=== PATIENT | female | born 1980 | race Caucasian/White ===

== ENCOUNTER → 2017-05-30 | Outpatient (CLI) | payer BC ==
--- NOTE | 2017-05-30 13:52 | RADIOLOGY IMAGING REPORT ---
FACILITY: [facility] - [place] PATIENT NAME: Maribel Johnston : 1980 MR: [id number] V: [id number] EXAM DATE: ORDERING PHYSICIAN: EMILE FERNANDES TECHNOLOGIST: Location: [facility] - [place] Patient: Maribel Johnston : 1980 Visit/Account:[id number] Date of Sevice: 05/30/2017 Exam type: HAND COMPLETE RIGHT History: Gallbladder four days ago, pain on fifth digit Comparison: None. Findings: There is no evidence of acute fracture or dislocation involving the right hand. No radiopaque soft t issue foreign body is seen. IMPRESSION: 1. No acute osteoarticular abnormality the right hand is seen. If patient's symptoms persist follow -up imaging recommended to exclude an occult fracture Report Dictated By: Flory Morrissey MD at 05/30/2017 1:42 PM Report E-Signed By: Flory Morrissey MD at 05/30/2017 1:48 PM [id number]
== END ==
LOC: RAD 11:27
PROVIDERS: ATTEND Nurse Practitioner Family
DX: M79.641 Pain in right hand (principal)

== ENCOUNTER 2017-06-06 | Emergency (ER) | payer BC ==
[~2017-06-06] VITALS: Ht 162.6 cm; Wt 54.4 kg
--- NOTE | 2017-06-06 00:03 | ER Report ---
History and Physical Time Seen By MD: 00:03 HPI/ROS CHIEF COMPLAINT: Right flank pain HISTORY OF PRESENT ILLNESS: 36-year-old female presents ambulatory to the ER complaining of severe right flank pain. She is diaphoretic and clammy. She notes sudden onset of pain. She notes some dark colored urine yesterday. She notes severe nausea but no vomiting. Patient notes radiation of the pain to her right lower quadrant. Patient admits to some urgency REVIEW OF SYSTEMS: Respiratory: No cough, no dyspnea. Cardiovascular: No chest pain, no palpitations. Gastrointestinal: As above Musculoskeletal: As above Allergies: Coded Allergies: No Known Drug Allergies (Unverified , 06/06/17) Home Meds Active Scripts Oxycodone Hcl/Acetaminophen (PERCOCET 5-325 MG TABLET) 1 Each Tablet, 1 EACH PO Q4-6H Y for PAIN, #12 Prov:FABRUDY Alcala DO 06/06/17 Promethazine Hcl (PROMETHAZINE HCL) 25 Mg Tablet, 25 MG PO Q4H Y for NAUSEA/ VOMITING, #12 TAB Prov:FABRUDY Alcala DO 06/06/17 Reported Medications Bupropion Hcl (WELLBUTRIN XL) 300 Mg Tab.er.24h, 300 MG PO QDAY, TAB 06/06/17 Reviewed Nurses Notes: Yes Old Medical Records Reviewed: Yes Constitutional Vital Sign - Last 24 Hours 06/06/17 06/06/17 06/06/17 06/06/17 00:04 00:30 00:45 01:00 Temp 98.5 Pulse 92 ? 80 Resp 16 B/P (MAP) 127/82 Pulse Ox 91 90 06/06/17 06/06/17 06/06/17 06/06/17 01:15 01:30 01:45 02:00 Pulse ? 80 73 Pulse Ox 95 89 06/06/17 06/06/17 02:15 03:05 Pulse 79 85 Resp 16 B/P (MAP) 98/72 (81) Pulse Ox 94 95 O2 Delivery Room Air Physical Exam General Appearance: The patient is alert, has no immediate need for airway protection and no current signs of toxicity. Vital signs stable, afebrile, pulse ox normal, slightly pale appearing, skin: Dry HEENT: Pupils equal and round no injection. Oropharynx without redness or exudate, mucous membranes are moist Respiratory: Chest is non tender, lungs are clear to auscultation. Cardiac: regular rate and rhythm Gastrointestinal: Abdomen is soft and non tender, no masses, bowel sounds normal., Positive right CVA tenderness Musculoskeletal: Neck: Neck is supple and non tender. Extremities have full range of motion and are non tender. Skin: No rashes or lesions. DIFFERENTIAL DIAGNOSIS: After history and physical exam differential diagnosis was considered for flank pain including but not limited to musculoskeletal causes, kidney stone, pyelonephritis, shingles, and intra-abdominal causes such as diverticulitis and appendicitis. Medical Decision Making Data Points Result Diagram: 06/06/17 0046 06/06/17 0046 Laboratory Hematology Test 06/06/17 00:46 06/06/17 01:07 Red Blood Count 4.71 M/uL (4.17-5.56) Mean Corpuscular Volume 90.9 fL (80.0-96.0) Mean Corpuscular Hemoglobin 31.8 pg (26.0-33.0) Mean Corpuscular Hemoglobin Concent 34.9 g/dL (32.0-36.0) Red Cell Distribution Width 11.7 % (11.5-14.5) Mean Platelet Volume 8.6 fL (7.2-11.1) Neutrophils (%) (Auto) 54.4 % (39.4-72.5) Lymphocytes (%) (Auto) 35.9 % (17.6-49.6) Monocytes (%) (Auto) 7.7 % (4.1-12.4) Eosinophils (%) (Auto) 1.3 % (0.4-6.7) Basophils (%) (Auto) 0.7 % (0.3-1.4) Nucleated RBC Relative Count (auto) 0.0 /100WBC Neutrophils # (Auto) 4.9 K/uL (2.0-7.4) Lymphocytes # (Auto) 3.2 K/uL (1.3-3.6) Monocytes # (Auto) 0.7 K/uL (0.3-1.0) Eosinophils # (Auto) 0.1 K/uL (0.0-0.5) Basophils # (Auto) 0.1 K/uL (0.0-0.1) Nucleated RBC Absolute Count (auto) 0.00 K/uL Sodium Level 139 mmol/L (137-145) Potassium Level 3.7 mmol/L (3.5-5.0) Chloride Level 105 mmol/L (98-107) Carbon Dioxide Level 21 mmol/L (22-31) Blood Urea Nitrogen 14 mg/dl (7-18) Creatinine 0.80 mg/dl (0.52-1.04) Glomerular Filtration Rate Calc > 60.0 Random Glucose 89 mg/dl (75-110) Calcium Level 9.3 mg/dl (8.4-10.2) Total Bilirubin 0.4 mg/dl (0.2-1.3) Aspartate Amino Transf (AST/SGOT) 19 U/L (0-35) Alanine Aminotransferase (ALT/SGPT) 28 U/L (0-56) Alkaline Phosphatase 64 U/L (0-126) Total Protein 7.7 gm/dl (6.3-8.2) Albumin 4.3 g/dl (3.5-5.0) Amylase Level 68 U/L (0-110) Lipase 101 U/L (23-300) Human Chorionic Gonadotropin, Qual Negative (NEGATIVE) Urine Color Straw Urine Clarity Clear Urine pH 5.0 pH (4.8-9.5) Urine Specific [place] 1.013 Urine Protein Negative mg/dL (NEGATIVE) Urine Glucose (UA) Negative mg/dL (NEGATIVE) Urine Ketones Trace mg/dL (NEGATIVE) Urine Blood Small (NEGATIVE) Urine Nitrite Negative (NEGATIVE) Urine Bilirubin Negative (NEGATIVE) Urine Urobilinogen Negative mg/dL (0.2-1.9) Urine Leukocyte Esterase Negative (NEGATIVE) Urine RBC 1 /HPF (0-2/HPF) Urine WBC None /HPF (0-5/HPF) Urine Squamous Epithelial Cells Few /LPF (</=FEW) Urine Bacteria Negative /HPF (NONE-FEW) Urine Mucus None /HPF (NONE-FEW) Chemistry Test 06/06/17 00:46 06/06/17 01:07 White Blood Count 9.0 k/uL (4.5-11.0) Red Blood Count 4.71 M/uL (4.17-5.56) Hemoglobin 15.0 g/dL (12.0-16.0) Hematocrit 42.8 % (34.0-47.0) Mean Corpuscular Volume 90.9 fL (80.0-96.0) Mean Corpuscular Hemoglobin 31.8 pg (26.0-33.0) Mean Corpuscular Hemoglobin Concent 34.9 g/dL (32.0-36.0) Red Cell Distribution Width 11.7 % (11.5-14.5) Platelet Count 228 K/uL (150-450) Mean Platelet Volume 8.6 fL (7.2-11.1) Neutrophils (%) (Auto) 54.4 % (39.4-72.5) Lymphocytes (%) (Auto) 35.9 % (17.6-49.6) Monocytes (%) (Auto) 7.7 % (4.1-12.4) Eosinophils (%) (Auto) 1.3 % (0.4-6.7) Basophils (%) (Auto) 0.7 % (0.3-1.4) Nucleated RBC Relative Count (auto) 0.0 /100WBC Neutrophils # (Auto) 4.9 K/uL (2.0-7.4) Lymphocytes # (Auto) 3.2 K/uL (1.3-3.6) Monocytes # (Auto) 0.7 K/uL (0.3-1.0) Eosinophils # (Auto) 0.1 K/uL (0.0-0.5) Basophils # (Auto) 0.1 K/uL (0.0-0.1) Nucleated RBC Absolute Count (auto) 0.00 K/uL Glomerular Filtration Rate Calc > 60.0 Calcium Level 9.3 mg/dl (8.4-10.2) Total Bilirubin 0.4 mg/dl (0.2-1.3) Aspartate Amino Transf (AST/SGOT) 19 U/L (0-35) Alanine Aminotransferase (ALT/SGPT) 28 U/L (0-56) Alkaline Phosphatase 64 U/L (0-126) Total Protein 7.7 gm/dl (6.3-8.2) Albumin 4.3 g/dl (3.5-5.0) Amylase Level 68 U/L (0-110) Lipase 101 U/L (23-300) Human Chorionic Gonadotropin, Qual Negative (NEGATIVE) Urine Color Straw Urine Clarity Clear Urine pH 5.0 pH (4.8-9.5) Urine Specific [place] 1.013 Urine Protein Negative mg/dL (NEGATIVE) Urine Glucose (UA) Negative mg/dL (NEGATIVE) Urine Ketones Trace mg/dL (NEGATIVE) Urine Blood Small (NEGATIVE) Urine Nitrite Negative (NEGATIVE) Urine Bilirubin Negative (NEGATIVE) Urine Urobilinogen Negative mg/dL (0.2-1.9) Urine Leukocyte Esterase Negative (NEGATIVE) Urine RBC 1 /HPF (0-2/HPF) Urine WBC None /HPF (0-5/HPF) Urine Squamous Epithelial Cells Few /LPF (</=FEW) Urine Bacteria Negative /HPF (NONE-FEW) Urine Mucus None /HPF (NONE-FEW) Urinalysis Test 06/06/17 01:07 Urine Color Straw Urine Clarity Clear Urine pH 5.0 pH (4.8-9.5) Urine Specific [place] 1.013 Urine Protein Negative mg/dL (NEGATIVE) Urine Glucose (UA) Negative mg/dL (NEGATIVE) Urine Ketones Trace mg/dL (NEGATIVE) Urine Blood Small (NEGATIVE) Urine Nitrite Negative (NEGATIVE) Urine Bilirubin Negative (NEGATIVE) Urine Urobilinogen Negative mg/dL (0.2-1.9) Urine Leukocyte Esterase Negative (NEGATIVE) Urine RBC 1 /HPF (0-2/HPF) Urine WBC None /HPF (0-5/HPF) Urine Squamous Epithelial Cells Few /LPF (</=FEW) Urine Bacteria Negative /HPF (NONE-FEW) Urine Mucus None /HPF (NONE-FEW) EKG/Imaging Imaging Results: CT scan of the abdomen and pelvis with IV contrast was obtained. The results of the study are EXAMINATION: CT Abdomen and Pelvis Without Contrast 06/06/2017 1:30 AM HISTORY: R flank pain TECHNIQUE: Renal stone protocol - Spiral scan was obtained through the kidneys , ureters and bladder without intravenous contrast. One of the following dose optimization techniques was utilized in the performance of this exam: Automated exposure control; adjustment of the mA and/ or kV according to the patient's size; or use of an iterative reconstruction technique. Specific details can be referenced in the facility's radiology CT exam operational policy. COMPARISON STUDIES: none. FINDINGS: Right kidney and ureter: Negative. No stone or obstruction. No perinephric stranding. Left kidney and ureter: Negative. No stone or obstruction. No perinephric stranding. Bladder: Negative. No stone. Liver / biliary: Prior cholecystectomy. Postinflammatory or dystrophic appearing calcifications laterally in the right lobe. Small hypodensity in the inferior tip of the right lobe presumptively is an incidental cyst. Pancreas: negative Spleen: 2.2 cm cyst with peripheral calcifications. Small incidental anteroinferior accessory splenule. Adrenal glands: negative Retroperitoneum: negative Pelvic structures: Prior hysterectomy. Bowel / peritoneum / mesenteries: Negative. Normal appendix. Vessels: negative Musculoskeletal / Body wall: Bilateral incidental chronic pars defects at L5. Probable old healed injury of the base of the left transverse spinous process of L2. Lymph node assessment: negative Lower chest: negative IMPRESSION: 1. Negative CT evaluation for kidney stone or obstruction. 2. No acute etiology for right-sided pain demonstrated. Appendix is normal. The study was read by the radiologist. I viewed the images myself on the PACS system. ED Course/Re-evaluation Clinical Indication for ER IV: Hydration, IV Access ED Course Patient was admitted to an examination room. H&P was done. The differential diagnoses was considered. On clinical examination. Patient has right CVA tenderness. She is very uncomfortable able to get on the examination bed. She has severe nausea. Her clinical presentation is consistent with renal colic. Patient's treated with IV fluids, antibiotics, Toradol, Dilaudid. Diagnostic evaluation WBC shows a normal white count. The remainder of the diagnostic laboratory studies are unremarkable. Urinalysis shows no hematuria. Due to his severe to the patient's symptoms. A CT scan without contrast is ordered. She apparently has an allergy to IV contrast. A CT scan was unremarkable for evidence of a stone or hydronephrosis. There is significant fecal stasis throughout the right colon. I suspect patient's suffering. Intestinal colic. She'll be discharged home in a conservative treatment plan. Patient's advised clear liquid diet, MiraLAX and magnesium citrate to empty her bowels. Decision to Disposition Date: Jun 06, 2017 Decision to Disposition Time: 02:51 Depart Departure Latest Vital Signs Vital Signs Date Time Temp Pulse Resp B/P (MAP) Pulse Ox O2 Delivery O2 Flow Rate FiO2 06/06/17 03:05 85 16 98/72 (81) 95 Room Air 06/06/17 00:04 98.5 Impression: Primary Impression: Right flank pain Additional Impressions: Colicky abdominal pain Nausea Condition: Improved Disposition: HOME OR SELF-CARE Referrals: EMILE FERNANDES APRN (PCP) New Scripts Oxycodone Hcl/Acetaminophen (PERCOCET 5-325 MG TABLET) 1 Each Tablet 1 EACH PO Q4-6H Y for PAIN, #12 Prov: RUDY SANON DO 06/06/17 Promethazine Hcl (PROMETHAZINE HCL) 25 Mg Tablet 25 MG PO Q4H Y for NAUSEA/VOMITING, #12 TAB Prov: RUDY SANON DO 06/06/17 Patient Instructions: Abdominal Pain (ED), Clear Liquid Diet (ED), Constipation (ED) Additional Instructions: Follow clear liquid diet for 24-48 hours and to your bowels evacuate Take MiraLAX 2-3 times per day Take one bottle of magnesium citrate laxative to stimulate bowel evacuation Take ibuprofen 200 mg 3 tablets 3 times a day for inflammatory pain relief Apply heating pad to your abdomen and back to alleviate the pain Follow-up with your primary care if unimproved in 3-5 days Return to the ER for any worsening Problem Qualifiers RUDY SANON DO Jun 06, 2017 00:03
[2017-06-06] MEDS ORDERED: BUPR-474 PO (00:09)
[2017-06-06] MEDS ORDERED: NS(*) 0.9% 1000 ML BAG 1,000 ML IV ONE (00:12)
[2017-06-06] MEDS ORDERED: ONDANSETRON 4 MG/2 ML VIAL IVP ONE (00:15)
[2017-06-06] MEDS ORDERED: KETOROLAC 30 MG/ML VIAL IVP ONE (00:15)
[2017-06-06] MEDS ORDERED: PROMETHAZINE 25 MG/ML 1 ML AMP IVP ONE (00:15)
[2017-06-06] MEDS ORDERED: HYDROmorphone(ER ONLY) 1 MG/ML IVP ONE ×2 (00:15→02:15)
[2017-06-06 00:58] LABS: PLATELET COUNT, AUTOMATED 228 K/uL (150-450)
--- NOTE | 2017-06-06 02:05 | RADIOLOGY IMAGING REPORT ---
FACILITY: [facility] - [place] PATIENT NAME: Maribel Johnston : 1980 MR: [id number] V: [id number] EXAM DATE: ORDERING PHYSICIAN: RUDY SANON TECHNOLOGIST: Location: [facility] - [place] Patient: Maribel Johnston : 1980 Visit/Account:[id number] Date of Sevice: 06/06/2017 EXAMINATION: CT Abdomen and Pelvis Without Contrast 06/06/2017 1:30 AM HISTORY: R flank pain TECHNIQUE: Renal stone protocol - Spiral scan was obtained through the kidneys, ureters and bladder without intravenous contrast. One of the following dose optimization techniques was utilized in the performance of this exam: Autom ated exposure control; adjustment of the mA and/or kV according to the patient's size; or use of an i terative reconstruction technique. Specific details can be referenced in the facility's radiology C T exam operational policy. COMPARISON STUDIES: none. FINDINGS: Right kidney and ureter: Negative. No stone or obstruction. No perinephric stranding. Left kidney and ureter: Negative. No stone or obstruction. No perinephric stranding. Bladder: Negative. No stone. Liver / biliary: Prior cholecystectomy. Postinflammatory or dystrophic appearing calcifications later ally in the right lobe. Small hypodensity in the inferior tip of the right lobe presumptively is an i ncidental cyst. Pancreas: negative Spleen: 2.2 cm cyst with peripheral calcifications. Small incidental anteroinferior accessory splenul e. Adrenal glands: negative Retroperitoneum: negative Pelvic structures: Prior hysterectomy. Bowel / peritoneum / mesenteries: Negative. Normal appendix. Vessels: negative Musculoskeletal / Body wall: Bilateral incidental chronic pars defects at L5. Probable old healed inj ury of the base of the left transverse spinous process of L2. Lymph node assessment: negative Lower chest: negative IMPRESSION: 1. Negative CT evaluation for kidney stone or obstruction. 2. No acute etiology for right-sided pain demonstrated. Appendix is normal. Report Dictated By: Yaron Post MD at 06/06/2017 1:54 AM Report E-Signed By: Yaron Post MD at 06/06/2017 2:00 AM WSN:[id number]
[2017-06-06] MEDS ORDERED: PROM-110 PO (02:53)
[2017-06-06] MEDS ORDERED: OXYC-865 PO (02:53)
[2017-06-06] MEDS ORDERED: PROMETHAZINE HCL 25 MG TAB TH 2 TAB/BOTTLE PO ONE (02:55)
[2017-06-06] MEDS ORDERED: oxyCODONE/ACETAMIN 5/325MG TH 2 TAB/BOTTLE PO ONE (02:55)
[2017-06-06 03:05] VITALS: BP 98/72
== END 2017-06-06 03:20 | disposition home or self-care (01) ==
LOC: ER 00:06
DX: R10.84 Generalized abdominal pain (principal)
CPT/HCPCS: 74176; 81001; 82150; 83690; 84703; 85025; 96361; 96374; 96375; 96376; 99284; J1170; J1885; J2405; J2550; J7030; 82040; 82247; 82310; 82374; 82435; 82565; 82947; 84075; 84132; 84155; 84295; 84450; 84460; 84520

== ENCOUNTER 2017-06-12 13:57 | Emergency (ER) | payer BC ==
[~2017-06-12 13:57] MED LIST: BUPR-474 PO; OXYC-865 PO; PROM-110 PO
--- NOTE | 2017-06-12 14:10 | ER Report ---
History and Physical Time Seen By MD: 14:09 Hx. of Stated Complaint: Referred from urgent care. 10 days of bad hemorrhoids. Pt states pain is simmilar to kidney stone pain. HPI/ROS CHIEF COMPLAINT: Hemorrhoid pain HISTORY OF PRESENT ILLNESS: 37-year-old female patient presents to emergency room with complaint of hemorrhoid pain. Patient states this been going on for the past 10 days. Patient states the pain is fairly significant. She denies having any fevers or chills with this. Patient states that she has been taking Savi lax to help soften the stool. She states that she is not had any improvement with pain. She did see her primary care provider who started her on hydrocortisone suppositories. She states that has not had any improvement. She does have an appointment with Dr. Mariee on Tuesday. She states that he is to discuss the hemorrhoids. She states the pain became so bad today that she was unable to bear it until then. REVIEW OF SYSTEMS: Respiratory: No cough, no dyspnea. Cardiovascular: No chest pain, no palpitations. Gastrointestinal: No vomiting, no abdominal pain. Musculoskeletal: No back pain. Allergies: Coded Allergies: No Known Drug Allergies (Unverified , 06/06/17) Home Meds Reported Medications Bupropion Hcl (WELLBUTRIN XL) 300 Mg Tab.er.24h, 300 MG PO QDAY, TAB 06/06/17 Discontinued Scripts Oxycodone Hcl/Acetaminophen (PERCOCET 5-325 MG TABLET) 1 Each Tablet, 1 EACH PO Q4-6H Y for PAIN, #12 Prov:RUDY SANON DO 06/06/17 Promethazine Hcl (PROMETHAZINE HCL) 25 Mg Tablet, 25 MG PO Q4H Y for NAUSEA/ VOMITING, #12 TAB Prov:RUDY SANON DO 06/06/17 Past Medical/Surgical History Patient has a past medical history of anxiety. Patient has a surgical history of hysterectomy. Reviewed Nurses Notes: Yes Hx Substance Use Disorder: No Hx Alcohol Use: No Constitutional Vital Sign - Last 24 Hours 06/12/17 06/12/17 06/12/17 06/12/17 14:03 14:04 14:07 14:09 Temp 98.7 Pulse 101 78 Resp 18 B/P (MAP) 121/96 (104) 121/96 120/81 (94) Pulse Ox 95 95 O2 Delivery Room Air 06/12/17 06/12/17 06/12/17 06/12/17 14:12 14:17 14:20 14:22 Pulse 83 80 116 B/P (MAP) 129/100 (110) Pulse Ox 94 91 77 06/12/17 06/12/17 06/12/17 06/12/17 14:27 14:32 14:37 14:40 Pulse 87 78 72 B/P (MAP) 109/64 (79) Pulse Ox 96 93 95 06/12/17 06/12/17 06/12/17 06/12/17 14:42 14:47 14:52 14:57 Pulse 71 72 75 72 Pulse Ox 93 95 91 94 06/12/17 06/12/17 06/12/17 06/12/17 15:00 15:02 15:07 15:12 Pulse 68 66 72 B/P (MAP) 105/68 (80) Pulse Ox 93 94 93 06/12/17 06/12/17 06/12/17 06/12/17 15:17 15:20 15:22 15:27 Pulse 74 70 66 B/P (MAP) 104/73 (83) Pulse Ox 94 95 93 06/12/17 06/12/17 06/12/17 06/12/17 15:32 15:37 15:40 15:42 Pulse 65 73 67 B/P (MAP) 101/61 (74) Pulse Ox 94 95 95 06/12/17 06/12/17 15:47 15:52 Pulse 67 66 Pulse Ox 95 94 Physical Exam General Appearance: The patient is alert, has no immediate need for airway protection and no current signs of toxicity. Respiratory: Chest is non tender, lungs are clear to auscultation. Cardiac: regular rate and rhythm Gastrointestinal: Abdomen is soft and non tender, no masses, bowel sounds normal. Rectal: Patient has 2 large hemorrhoids one at 9:00 and one at 3:00 in the rectum. The hemorrhoid at 9:00 is larger, and is most tender. Musculoskeletal: Neck: Neck is supple and non tender. Extremities have full range of motion and are non tender. Skin: No rashes or lesions. DIFFERENTIAL DIAGNOSIS: After history and physical exam differential diagnosis was considered for hemorrhoid pain, thrombosed hemorrhoid. Medical Decision Making ED Course/Re-evaluation ED Course Patient was admitted to an exam room, history and physical were obtained. Differential diagnoses were considered. On examination patient has 2 large hemorrhoids, the largest is at 9:00 in the rectum and very tender to touch, the second is at 3:00 and also very tender. With the patient permission, the area was anesthetized, cleaned with alcohol. Patient stated that she had significant nausea after she was anesthetized. Patient was given a dose of Zofran. After 20 minutes I did go in and reevaluated the patient. She states she's feeling significantly better. The hemorrhoids at that time were adequately anesthetized , and incisions were made. I was able to get out clots from both hemorrhoids. I believe this likely the underlying cause of her pain. We will go ahead and discharge her home at this time. I would like her to keep 4 x 4's back between her buttocks for today. Tomorrow she may remove them. She is to limit her activity by pain. She may return to emergency room if condition worsens. I would like her to keep her appointment with Dr. Mariee. We will hold off putting her on any laxatives time, as I do not believe that she will likely need them. She is to follow-up if there is any worsening of her condition. Patient verbalized understanding and agreement. Decision to Disposition Date: Jun 12, 2017 Decision to Disposition Time: 15:28 Depart Departure Latest Vital Signs Vital Signs Date Time Temp Pulse Resp B/P (MAP) Pulse Ox O2 Delivery O2 Flow Rate FiO2 06/12/17 15:52 66 94 06/12/17 15:40 101/61 (74) 06/12/17 14:04 98.7 18 Room Air Impression: Primary Impression: Thrombosed hemorrhoids Condition: Improved Disposition: HOME OR SELF-CARE Referrals: EMILE FERNANDES APRN (PCP) Patient Instructions: Thrombosed Hemorrhoid (ED) Additional Instructions: Limit activity by pain. You may work tomorrow if you are feeling up to it. Return to the ER if condition worsens. Follow up with Dr. Mariee on Tuesday as previously scheduled. Take Tylenol or Ibuprofen as needed for pain. You may change the 4x4 whenever you go to the bathroom. Wipe first with a Tucks pad. Continue using the Hydrocortisone suppositories. SETH TEAGUE Jun 12, 2017 14:09
[2017-06-12] MEDS ORDERED: ONDANSETRON 4 MG ODT TABDP SL ONE (14:45)
[2017-06-12 15:40] VITALS: BP 101/61
[2017-06-13] MEDS ORDERED: ALPR-1 PO (13:52)
[2017-06-13] MEDS ORDERED: ESCI10TA8 PO (13:52)
== END 2017-06-12 15:58 | disposition home or self-care (01) ==
LOC: ER 14:02
DX: K64.5 Perianal venous thrombosis (principal)
CPT/HCPCS: 99284; S0119

== ENCOUNTER 2017-06-13 13:41 | Inpatient (IN) | payer BC ==
[~2017-06-13] VITALS: Ht 162.6 cm; Wt 54.6 kg
[2017-06-13] MEDS ORDERED: ALPR-1 PO (13:52)
[2017-06-13] MEDS ORDERED: ESCI10TA8 PO (13:52)
--- NOTE | 2017-06-13 13:57 | ER Report ---
History and Physical Time Seen By MD: 13:56 Hx. of Stated Complaint: CONTINUED BLEEDING FROM HEMAROIDS. INCREASED PAIN. HPI/ROS CHIEF COMPLAINT: Hemorrhoids HISTORY OF PRESENT ILLNESS: This is a 37-year-old female who presents to the emergency department for complaints of hemorrhoids. Patient states that she was here yesterday for her hemorrhoids and they did an excision of the thrombosed hemorrhoid. Patient states that she's been having the hemorrhoid discomfort for about 10 days and has been getting worse she's talked to her doctor she been on stool softeners, fiber, topical ointments for the groins as well as suppositories. Patient states that since yesterday the pain has actually increased and she is very frustrated, tearful and anxious. Patient states that "something needs to be done". Patient denies chest pain, shortness of breath, nausea, vomiting. REVIEW OF SYSTEMS: Respiratory: No cough, no dyspnea. Cardiovascular: No chest pain, no palpitations. Gastrointestinal: No vomiting, no abdominal pain. Musculoskeletal: No back pain. Integumentary: As above. Allergies: Coded Allergies: No Known Drug Allergies (Unverified , 06/13/17) Home Meds Reported Medications Alprazolam 0.25 Mg Tab (XANAX 0.25 MG TAB) 0.25 Mg Tablet, 1 TAB PO TID, TAB 06/13/17 Escitalopram Oxalate (ESCITALOPRAM OXALATE) 10 Mg Tablet, 10 MG PO QDAY, TAB 06/13/17 Bupropion Hcl (WELLBUTRIN XL) 300 Mg Tab.er.24h, 300 MG PO QDAY, TAB 06/06/17 Discontinued Scripts Oxycodone Hcl/Acetaminophen (PERCOCET 5-325 MG TABLET) 1 Each Tablet, 1 EACH PO Q4-6H Y for PAIN, #12 Prov:RUDY SANON DO 06/06/17 Promethazine Hcl (PROMETHAZINE HCL) 25 Mg Tablet, 25 MG PO Q4H Y for NAUSEA/ VOMITING, #12 TAB Prov:RUDY SANON DO 06/06/17 Past Medical/Surgical History Patient has a past medical surgical history of anxiety, hysterectomy. Reviewed Nurses Notes: Yes Hx Substance Use Disorder: No Hx Alcohol Use: No Constitutional Vital Sign - Last 24 Hours 06/13/17 13:50 Temp 98.0 Pulse 85 Resp 18 B/P (MAP) 113/60 Pulse Ox 95 O2 Delivery Room Air Physical Exam General Appearance: The patient is alert, has no immediate need for airway protection and no current signs of toxicity. Eyes: Pupils equal and round no injection. Respiratory: Chest is non tender, lungs are clear to auscultation. Cardiac: regular rate and rhythm, no murmurs, clicks or rubs. Gastrointestinal: Abdomen is soft and non tender, no masses, bowel sounds normal. Musculoskeletal: Neck: Neck is supple and non tender. Extremities have full range of motion and are non tender. Skin: Re-thrombosed hemorrhoid at 9:00. Painful to touch. Dark in color. DIFFERENTIAL DIAGNOSIS: After history and physical exam differential diagnosis was considered for hemorrhoids. Medical Decision Making ED Course/Re-evaluation ED Course Patient was admitted to her. History and physical were obtained. Differential diagnosis considered. Patient was very anxious at the bedside, tearful and very reluctant to have any other procedure done for her hemorrhoids. Patient states that she did try calling Dr. Barragan's office, the patient and her were told they wouldn't be able to get her in until July, so she did call Dr. Mariee and they did schedule an appointment for Tuesday for follow-up. Patient was so uncomfortable and painful that even upon inspection touching the gluteal folds was uncomfortable patient was tearful and I did see the incision but there is no drainage at this time. It does appear that the hemorrhoid has re -thrombosed. I did speak with Dr. Hartman regarding patient's case and he did tell me that he would be admitted to him in his office within July and instructed them to try ibuprofen or Tylenol as needed stools softeners, fiber supplements, try Tucks medicated pads and some topical ointment. I did discuss this with patient and her they were very upset and frustrated so I did talk to Dr. Hartman again. Dr. Barragan was kind enough to come down to the emergency department for evaluation of the patient, she was ultimately admitted to the hospital for hemorrhoids and pain control. The patient was also given 1 mg of oral Ativan. Patient states that this didn't help she was feeling more comfortable less anxious. The patient and her had no other questions or concerns and were admitted. Decision to Disposition Date: Jun 13, 2017 Decision to Disposition Time: 15:12 Depart Departure Latest Vital Signs Vital Signs Date Time Temp Pulse Resp B/P (MAP) Pulse Ox O2 Delivery O2 Flow Rate FiO2 06/13/17 13:50 98.0 85 18 113/60 95 Room Air Impression: Primary Impression: Hemorrhoids Condition: Improved Disposition: Admitted from ER Referrals: EMILE FERNANDES APRN (PCP) Problem Qualifiers Primary Impression: Hemorrhoids Hemorrhoid type: unspecified Qualified Codes: K64.9 - Unspecified hemorrhoids MIHIR DIAZP-AINSLEY Jun 13, 2017 13:56
[2017-06-13] MEDS ORDERED: LORazepam 1 MG TAB PO ONE (14:20)
[2017-06-13] MEDS ORDERED: FLUSH 10 ML SYR IVP PRN (15:00)
[2017-06-13 16:04] VITALS: BP 98/64
[2017-06-13] MEDS: HYDROmorphone PCA 6 MG/30 ML IV PRN (16:34)
[2017-06-13] MEDS: NS(*) 0.9% 1000 ML BAG 1,000 ML IV PRN (16:34)
[2017-06-13] MEDS: ACETAMINOPHEN(*)1000 MG/100 ML 100 ML IVPB SCH ×2 (17:09→22:27)
--- NOTE | 2017-06-13 17:40 | Gen Surgery History & Physical ---
History of Present Illness Chief Complaint Anal pain History of Present Illness 37-year-old female comes into the emergency department with anal pain. This is been going on for 10 days. She was apparently seen yesterday in the emergency room where she was diagnosed with a thrombosed hemorrhoid which was incised and drained but according to the patient this has not helped her discomfort at all. She has come in again today with worsening anal pain and so I was consult for further evaluation and management. She denies any constipation or diarrhea. She reports having regular soft easy to pass bowel movements. She has been dealing with hemorrhoids on and off for over 15 years since her 1st child was born. She has never before had any anal procedures such as hemorrhoidectomy done. Patient appears very anxious and uncomfortable and is tearful throughout my entire encounter with her and is unable to provide much history and most of the history is provided by her . History Problems: (1) Depression Status: Chronic (2) Anxiety Status: Chronic Home Meds Reported Medications Alprazolam 0.25 Mg Tab (XANAX 0.25 MG TAB) 0.25 Mg Tablet, 1 TAB PO TID, TAB 06/13/17 Escitalopram Oxalate (ESCITALOPRAM OXALATE) 10 Mg Tablet, 10 MG PO QDAY, TAB 06/13/17 Bupropion Hcl (WELLBUTRIN XL) 300 Mg Tab.er.24h, 300 MG PO QDAY, TAB 06/06/17 Discontinued Scripts Oxycodone Hcl/Acetaminophen (PERCOCET 5-325 MG TABLET) 1 Each Tablet, 1 EACH PO Q4-6H Y for PAIN, #12 Prov:RUDY SANON DO 06/06/17 Promethazine Hcl (PROMETHAZINE HCL) 25 Mg Tablet, 25 MG PO Q4H Y for NAUSEA/ VOMITING, #12 TAB Prov:RUDY SANON DO 06/06/17 Allergies: Coded Allergies: No Known Drug Allergies (Unverified , 06/13/17) Review of Systems All Systems Reviewed/Normal: Yes, Except as Noted Exam General Appearance: Alert, Awake, No Acute Distress, Afebrile, Other (patient is very tearful throughout the encounter. She is unable to provide me much history and her provides most of the history.) Neuro: No Gross deficits Eyes: PERRLA GI: Other (the patient has perianal swelling with evidence of a thrombosed hemorrhoid on the left lateral aspect. There is also some discoloration of perianal veins onto the adjacent buttock skin.) Extremities: Warm, Perfused Assessment and Plan Problems: (1) Thrombosed hemorrhoids Status: Acute Assessment & Plan: 06/13/17: I have provided reassurance that hemorrhoids are generally a benign process in that they improve over time. The main issue will be pain control. I offered a regimen of pain control that she could go home with however she is very uncomfortable and is so far failing outpatient therapy and wishes to be admitted for pain control. I have told them that there is no acute operation that can be performed that we will immediately get rid of her pain and that any operation that I would perform would more than likely cause worse pain that can last 2 or 3 weeks from now. Her seem somewhat frustrated about this as she is are been having pain for 10 days and he obviously wishes to have something performed that would more immediately get rid of her symptoms but I have reassured him that this is not possible but that I can admit her and make her more comfortable until this improves hopefully over the next couple of days. We will admit her and start her on a [employer]ANCE as well as IV Tylenol and Toradol and topical dibucaine. We can also use sitz baths. I will place her on a bowel regimen so as to prevent constipation on this regimen. She can go home when her symptoms are controlled with pills. Condition Stable Time Spent: < 30 min Venous Thromboembolism VTE Risk Physician Assess for VTE Risk: Yes Patient's VTE Risk: Low VTE Diagnostic Test 2 Days Prior to Admit: No Antithrombotics Is Pt On Any Antithrombotics?: No WHITNEY CALIX MD Jun 13, 2017 17:40
[2017-06-13] MEDS ORDERED: NALOXONE HCL 0.4 MG/ML VIAL IVP PRN (18:15)
[2017-06-13] MEDS: KETOROLAC 30 MG/ML VIAL IVP SCH ×2 (18:32→23:27)
[2017-06-13] MEDS: ONDANSETRON 4 MG/2 ML VIAL IVP PRN (18:33)
[2017-06-13 19:37] VITALS: BP 101/66
[2017-06-13] MEDS: FAMOTIDINE 20 MG TAB PO SCH (20:50)
[2017-06-13] MEDS: ALPRAZolam 0.25 MG TAB PO SCH (20:50)
[2017-06-13] MEDS: DOCUSATE SODIUM 100 MG CAP PO SCH (20:50)
[2017-06-13] MEDS: DIBUCAINE 1% TP SCH (20:50)
[2017-06-13] MEDS: PROMETHAZINE 25 MG/ML 1 ML AMP IVP PRN ×2 (22:50→23:27)
[2017-06-14] MEDS: DIBUCAINE 1% TP SCH ×4 (00:10→20:33)
[2017-06-14 03:26] VITALS: BP 87/44
[2017-06-14] MEDS: ACETAMINOPHEN(*)1000 MG/100 ML 100 ML IVPB SCH ×4 (03:36→21:41)
[2017-06-14] MEDS: ONDANSETRON 4 MG/2 ML VIAL IVP PRN ×4 (03:36→21:41)
[2017-06-14] MEDS: KETOROLAC 30 MG/ML VIAL IVP SCH ×4 (05:20→23:17)
[2017-06-14] MEDS: NS(*) 0.9% 1000 ML BAG 1,000 ML IV PRN ×2 (05:20→22:11)
[2017-06-14 07:32] VITALS: BP 110/57
[2017-06-14] MEDS ORDERED: diphenhydrAMINE 50 MG/ML VIAL IVP ONE (08:25)
[2017-06-14 08:34] VITALS: Ht 162.6 cm; Wt 54.6 kg
--- NOTE | 2017-06-14 08:34 | General Surgery Progress Note ---
Subjective Progress Notes Subjective Feeling better this morning. Less pain. Had some N/V yesterday. Has been having nausea for the last week. No BM for several days. Physical Exam Vital Signs Date Time Temp Pulse Resp B/P (MAP) Pulse Ox O2 Delivery O2 Flow Rate FiO2 06/14/17 07:41 12 99 06/14/17 07:32 98.0 61 110/57 (74) Room Air 06/14/17 07:32 1.0 General Appearance: Alert, Awake, No Acute Distress, Afebrile GI: Other (Pt eating breakfast, will inspect hemorrhoids this afternoon) Assessment and Plan Problems: (1) Thrombosed hemorrhoids Status: Acute Assessment & Plan: 06/13/17: I have provided reassurance that hemorrhoids are generally a benign process in that they improve over time. The main issue will be pain control. I offered a regimen of pain control that she could go home with however she is very uncomfortable and is so far failing outpatient therapy and wishes to be admitted for pain control. I have told them that there is no acute operation that can be performed that we will immediately get rid of her pain and that any operation that I would perform would more than likely cause worse pain that can last 2 or 3 weeks from now. Her seem somewhat frustrated about this as she is are been having pain for 10 days and he obviously wishes to have something performed that would more immediately get rid of her symptoms but I have reassured him that this is not possible but that I can admit her and make her more comfortable until this improves hopefully over the next couple of days. We will admit her and start her on a ENGINEERING TEST SPECIALIST as well as IV Tylenol and Toradol and topical dibucaine. We can also use sitz baths. I will place her on a bowel regimen so as to prevent constipation on this regimen. She can go home when her symptoms are controlled with pills. 06/14/17: Doing a little better. Will get CT abd/pelvis today with IV contrast to r/o a pelvic mass and venous obstruction given recent abdominal pain and severe hemorrhoids. Will continue pain control measures. Work on BMs today. Will go home when hemorrhoids improve and pain controlled with PO meds and having soft, [id number] BMs. Condition Stable. Time Spent: < 30 min Exam Sepsis Risk: No Definite Risk WHITNEY CALIX MD Jun 14, 2017 08:34
[2017-06-14] MEDS: FAMOTIDINE 20 MG TAB PO SCH ×2 (09:20→20:33)
[2017-06-14] MEDS: ALPRAZolam 0.25 MG TAB PO SCH ×3 (09:20→20:33)
[2017-06-14] MEDS: buPROPion XL 150 MG TABCR PO SCH (09:20)
[2017-06-14] MEDS: DOCUSATE SODIUM 100 MG CAP PO SCH ×2 (09:20→20:33)
[2017-06-14] MEDS: PSYLLIUM 28% 1 PACKET PO SCH (09:22)
[2017-06-14] MEDS: ESCITALOPRAM OXALATE 10 MG TAB PO SCH (09:23)
[2017-06-14] MEDS: POLYETHYLENE GLYCOL 17 GM PKT PO SCH (09:23)
[2017-06-14] MEDS ORDERED: IOPAMIDOL 76% 75 ML INFUS BTL 75 ML ONE (11:30)
[2017-06-14] MEDS ORDERED: NS 0.9% 20 ML SDV 60 ML ONE (11:30)
[2017-06-14 11:31] VITALS: BP 103/65
--- NOTE | 2017-06-14 14:56 | RADIOLOGY IMAGING REPORT ---
FACILITY: [facility] PATIENT NAME: Maribel Johnston : 1980 MR: [id number] V: [id number] EXAM DATE: ORDERING PHYSICIAN: WHITNEY CALIX TECHNOLOGIST: Location: [facility] Patient: Maribel Johnston : 1980 Visit/Account:[id number] Date of Sevice: 06/14/2017 ABDOMEN/PELVIS WITH CONTRAST HISTORY: Abd pn, severe acute hemorrhoids, r/o venous obstructio TECHNIQUE: Following administration of IV contrast contiguous axial images acquired through the abdom en/pelvis. Coronal and sagittal reformatting also performed. Dose Lowering Technique One of the following dose optimization techniques was utilized in the performance of this exam: Autom ated exposure control; adjustment of the mA and/or kV according to the patient's size; or use of an i terative reconstruction technique. Specific details can be referenced in the facility's radiology C T exam operational policy. CONTRAST: 75 mL Isovue-370 COMPARISON: June 06, 2017 FINDINGS: Visualized lung bases: Small amount of by basilar atelectasis Hepatobiliary: Postsurgical changes from a cholecystectomy. There are coarse calcifications the rig ht lobe of the liver Spleen: 2.2 cm cyst with peripheral calcifications again identified in the anterior spleen. Is a sm all adjacent accessory splenule Adrenals: Negative. Pancreas: Negative. Kidneys ureters or bladder: Negative. Genitalia: Uterus not identified GI: Bowel anastomosis in the right lower quadrant Vessels/spaces/nodes: There is no evidence of venous obstruction. Bones/soft tissues: Pars defects at L5 Additional findings: None pertinent. IMPRESSION: No evidence of venous obstruction 2.2 cm cyst with peripheral calcifications again identified in the anterior spleen Post surgical changes from a cholecystectomy Coarse calcifications right lobe of the liver and main stable Small amount of by basilar atelectasis Report Dictated By: Flory Morrissey MD at 06/14/2017 1:47 PM Report E-Signed By: Flory Morrissey MD at 06/14/2017 2:52 PM WSN:[id number]
[2017-06-14 15:32] VITALS: BP 93/49
[2017-06-14] MEDS: HYDROmorphone PCA 6 MG/30 ML IV PRN (16:42)
[2017-06-14 19:19] VITALS: BP 106/63
[2017-06-14 23:11] VITALS: BP 94/51
[2017-06-15 03:05] VITALS: BP 90/48
[2017-06-15] MEDS: ACETAMINOPHEN(*)1000 MG/100 ML 100 ML IVPB SCH ×3 (03:27→16:10)
[2017-06-15] MEDS: KETOROLAC 30 MG/ML VIAL IVP SCH ×2 (05:17→12:34)
--- NOTE | 2017-06-15 07:12 | General Surgery Progress Note ---
Subjective Progress Notes Subjective Still having a lot of pain due to her thrombosed hemorrhoid. Had 2 loose BMs. Physical Exam Vital Signs Date Time Temp Pulse Resp B/P (MAP) Pulse Ox O2 Delivery O2 Flow Rate FiO2 06/15/17 05:14 16 96 06/15/17 03:05 98.9 101 90/48 (62) Nasal Cannula 1.0 General Appearance: Alert, Awake, No Acute Distress, Afebrile GI: Soft and Non-Tender, Other (Hemorrhoid is getting smaller, still very TTP) Assessment and Plan Problems: (1) Thrombosed hemorrhoids Status: Acute Assessment & Plan: 06/13/17: I have provided reassurance that hemorrhoids are generally a benign process in that they improve over time. The main issue will be pain control. I offered a regimen of pain control that she could go home with however she is very uncomfortable and is so far failing outpatient therapy and wishes to be admitted for pain control. I have told them that there is no acute operation that can be performed that we will immediately get rid of her pain and that any operation that I would perform would more than likely cause worse pain that can last 2 or 3 weeks from now. Her seem somewhat frustrated about this as she is are been having pain for 10 days and he obviously wishes to have something performed that would more immediately get rid of her symptoms but I have reassured him that this is not possible but that I can admit her and make her more comfortable until this improves hopefully over the next couple of days. We will admit her and start her on a ACADEMIC DEAN as well as IV Tylenol and Toradol and topical dibucaine. We can also use sitz baths. I will place her on a bowel regimen so as to prevent constipation on this regimen. She can go home when her symptoms are controlled with pills. 06/14/17: Doing a little better. Will get CT abd/pelvis today with IV contrast to r/o a pelvic mass and venous obstruction given recent abdominal pain and severe hemorrhoids. Will continue pain control measures. Work on BMs today. Will go home when hemorrhoids improve and pain controlled with PO meds and having soft, [id number] BMs. 06/15/17: Continued improvement. Still dependent on IV pain meds via ACADEMIC DEAN for adequate pain control. Will consider converting to PO pain meds later today if pt tolerates. Now having BMs, continue bowel regimen. CT abd/pel without any acute process or evidence of venous obstruction, pelvic tumor, etc. Hopeful that she can go home tomorrow morning if pain controlled with PO meds overnight. Condition Stable. Time Spent: < 30 min Exam Sepsis Risk: No Definite Risk WHITNEY CALIX MD Jun 15, 2017 07:12
[2017-06-15 09:06] VITALS: BP 96/56
[2017-06-15] MEDS: PSYLLIUM 28% 1 PACKET PO SCH (09:47)
[2017-06-15] MEDS: DOCUSATE SODIUM 100 MG CAP PO SCH ×2 (09:47→20:55)
[2017-06-15] MEDS: DIBUCAINE 1% TP SCH ×3 (09:47→20:55)
[2017-06-15] MEDS: ESCITALOPRAM OXALATE 10 MG TAB PO SCH (09:47)
[2017-06-15] MEDS: POLYETHYLENE GLYCOL 17 GM PKT PO SCH (09:47)
[2017-06-15] MEDS: buPROPion XL 150 MG TABCR PO SCH (09:47)
[2017-06-15] MEDS: FAMOTIDINE 20 MG TAB PO SCH ×2 (09:47→20:55)
[2017-06-15] MEDS: ALPRAZolam 0.25 MG TAB PO SCH ×3 (09:47→20:55)
[2017-06-15 12:31] VITALS: BP 98/61
[2017-06-15] MEDS: NS(*) 0.9% 1000 ML BAG 1,000 ML IV PRN (14:26)
[2017-06-15] MEDS: HYDROmorphone PCA 6 MG/30 ML IV PRN (14:27)
[2017-06-15 15:08] VITALS: BP 99/63
[2017-06-15] MEDS ORDERED: MAGNESIUM HYDROXIDE* 30ML UDCP PO PRN (17:00)
[2017-06-15] MEDS ORDERED: HYDROmorphone HCL 2 MG/ML SDV IVP PRN (17:05)
[2017-06-15 19:24] VITALS: BP 83/61
[2017-06-15] MEDS: ONDANSETRON 4 MG/2 ML VIAL IVP PRN (19:28)
[2017-06-15] MEDS: IBUPROFEN 600 MG TAB PO PRN (21:45)
[2017-06-15 23:08] VITALS: BP 93/49
[2017-06-16 02:47] VITALS: BP 92/54
[2017-06-16] MEDS: IBUPROFEN 600 MG TAB PO PRN ×2 (02:52→09:23)
[2017-06-16 07:20] VITALS: BP 98/47
[2017-06-16] MEDS ORDERED: OXYC-854 PO (07:20)
[2017-06-16] MEDS ORDERED: DOCU100T13 PO (07:20)
[2017-06-16] MEDS ORDERED: IBUP400T13 PO (07:20)
--- NOTE | 2017-06-16 07:24 | Short(Outpt) Discharge Summary ---
Discharge Summary Reason for Hosp/Final Diag: (1) Thrombosed hemorrhoids Status: Acute Hospital Course & Plan: 06/13/17: I have provided reassurance that hemorrhoids are generally a benign process in that they improve over time. The main issue will be pain control. I offered a regimen of pain control that she could go home with however she is very uncomfortable and is so far failing outpatient therapy and wishes to be admitted for pain control. I have told them that there is no acute operation that can be performed that we will immediately get rid of her pain and that any operation that I would perform would more than likely cause worse pain that can last 2 or 3 weeks from now. Her seem somewhat frustrated about this as she is are been having pain for 10 days and he obviously wishes to have something performed that would more immediately get rid of her symptoms but I have reassured him that this is not possible but that I can admit her and make her more comfortable until this improves hopefully over the next couple of days. We will admit her and start her on a RETORT [employer]ER [employer] as well as IV Tylenol and Toradol and topical dibucaine. We can also use sitz baths. I will place her on a bowel regimen so as to prevent constipation on this regimen. She can go home when her symptoms are controlled with pills. 06/14/17: Doing a little better. Will get CT abd/pelvis today with IV contrast to r/o a pelvic mass and venous obstruction given recent abdominal pain and severe hemorrhoids. Will continue pain control measures. Work on BMs today. Will go home when hemorrhoids improve and pain controlled with PO meds and having soft, [id number] BMs. 06/15/17: Continued improvement. Still dependent on IV pain meds via RETORT FEEDER GROUND BONE for adequate pain control. Will consider converting to PO pain meds later today if pt tolerates. Now having BMs, continue bowel regimen. CT abd/pel without any acute process or evidence of venous obstruction, pelvic tumor, etc. Hopeful that she can go home tomorrow morning if pain controlled with PO meds overnight. 06/16/17: Continued slow improvement. Pain seems to be controlled with PO meds. Will d/c to home today and I will see her back in the office and discuss formal hemorrhoidectomy after the swelling has resolved. Departure Discharge to: Home, Self Care Discharge Instructions Home Meds Active Scripts Ibuprofen (IBUPROFEN) 400 Mg Tablet, 1 TAB PO Q4H Y for PAIN, #30 TAB 0 Refills Prov:WHITNEY CALIX MD 06/16/17 Docusate Sodium (DOCUSATE SODIUM) 100 Mg Tablet, 1 TAB PO BID, #30 TAB 0 Refills Prov:WHITNEY CALIX MD 06/16/17 Oxycodone Hcl/Acet 5/325 Mg (ENDOCET 5-325 TABLET) 1 Each Tablet, 1-2 TAB PO Q4H Y for PAIN, #30 TAB 0 Refills Prov:WHITNEY CALIX MD 06/16/17 Reported Medications Alprazolam 0.25 Mg Tab (XANAX 0.25 MG TAB) 0.25 Mg Tablet, 1 TAB PO TID, TAB 06/13/17 Escitalopram Oxalate (ESCITALOPRAM OXALATE) 10 Mg Tablet, 10 MG PO QDAY, TAB 06/13/17 Bupropion Hcl (WELLBUTRIN XL) 300 Mg Tab.er.24h, 300 MG PO QDAY, TAB 06/06/17 Discontinued Scripts Oxycodone Hcl/Acetaminophen (PERCOCET 5-325 MG TABLET) 1 Each Tablet, 1 EACH PO Q4-6H Y for PAIN, #12 Prov:RUDY SANON Fredrick DO 06/06/17 Promethazine Hcl (PROMETHAZINE HCL) 25 Mg Tablet, 25 MG PO Q4H Y for NAUSEA/ VOMITING, #12 TAB Prov:RUDY SANON DO 06/06/17 Follow up Referrals: General Surgery - 07/08/17 @ Surgery, General with Whitney Calix Md You have a follow up appointment scheduled with Dr. Calix on 07/08/17, at 9:00am. Diet: Regular Activity: As Tolerated Special Instructions: Alternate the oxycodone/acetaminophen and ibuprofen, each can be taken every 4 hours so you can take something for pain every 2 hours. Also, take warm baths and use the cold packs and topical anesthetic as needed for pain. Use the stool softeners/laxatives to keep your bowels moving to avoid constipation which can make your hemorrhoids worse. Stop them if you develop diarrhea which can also make your hemorrhoids worse. WHITNEY CALIX MD Jun 16, 2017 07:24
[2017-06-16] MEDS: buPROPion XL 150 MG TABCR PO SCH (08:30)
[2017-06-16] MEDS: ALPRAZolam 0.25 MG TAB PO SCH (08:30)
[2017-06-16] MEDS: DOCUSATE SODIUM 100 MG CAP PO SCH (08:30)
[2017-06-16] MEDS: FAMOTIDINE 20 MG TAB PO SCH (08:30)
[2017-06-16] MEDS: POLYETHYLENE GLYCOL 17 GM PKT PO SCH (08:30)
[2017-06-16] MEDS: ESCITALOPRAM OXALATE 10 MG TAB PO SCH (08:30)
[2017-06-16] MEDS: DIBUCAINE 1% TP SCH (08:31)
== END 2017-06-16 09:30 | disposition home or self-care (01) | DRG 395 ==
LOC: ER 13:51 → MED 15:10 → INTOOBSV 15:10 → OBSVTOIN 15:10
PROVIDERS: ADMIT Surgery; ATTEND Surgery
DX: K64.5 Perianal venous thrombosis (principal); F41.8 Other specified anxiety disorders; Z90.710 Acquired absence of both cervix and uterus; Z90.49 Acquired absence of other specified parts of digestive tract
CPT/HCPCS: 74177; 81001; 87088; 87205; 99285; J0131; J1170; J1200; J1885; J2405; J2550; J7030; J7050; Q9967

== ENCOUNTER 2017-08-18 02:54 | Day surgery (SDC) | payer BC ==
[2017-06-14 08:34] VITALS: Ht 162.6 cm; Wt 59.0 kg
[~2017-08-18] VITALS: Ht 162.6 cm; Wt 59.0 kg
[~2017-08-18 02:54] MED LIST changes: +ALPR-1 PO; +DOCU-416 PO; +DOCU100T13 PO; +ESCI10TA8 PO; +IBUP400T13 PO; +OXYC-854 PO
[2017-08-18] MEDS ORDERED: DEXAMETHASONE SOD 4 MG/ML VIAL ONE (08:25)
[2017-08-18] MEDS ORDERED: LIDOCAINE MPF 1% 5 ML VIAL ONE (08:25)
[2017-08-18] MEDS ORDERED: PROPOFOL EMUL(*) 10MG/ML 20 ML 20 ML ONE (08:25)
[2017-08-18] MEDS ORDERED: ONDANSETRON 4 MG/2 ML VIAL ONE (08:25)
[2017-08-18] MEDS ORDERED: METOCLOPRAMIDE 10 MG/2 ML SDV ONE (08:25)
[2017-08-18 08:44] VITALS: BP 111/65
[2017-08-18] MEDS ORDERED: LIDOCAINE/SOD BICARB 8.4% SYR ID ONE (08:50)
[2017-08-18] MEDS ORDERED: FAMOTIDINE 20 MG TAB PO ONE (08:50)
[2017-08-18] MEDS ORDERED: NORMOSOL R SOLN(*) 1000 ML BAG 1,000 ML IV PRN (08:50)
[2017-08-18] MEDS ORDERED: MIDAZOLAM 2 MG/2 ML VIAL IVP PRN (08:50)
[2017-08-18] MEDS ORDERED: SCOPOLAMINE 1.5 MG PATCH TD ONE (10:00)
[2017-08-18] MEDS ORDERED: GELATIN SPONGE SZ 100 ONE (10:17)
[2017-08-18] MEDS ORDERED: ROPIVACAINE 0.5% 20 ML VIAL ONE ×2 (10:17→11:52)
[2017-08-18] MEDS ORDERED: fentaNYL CITR 100 MCG/2 ML AMP ONE ×2 (10:36→12:53)
[2017-08-18] MEDS ORDERED: KETOROLAC 30 MG/ML VIAL ONE (12:53)
[2017-08-18] MEDS ORDERED: OXYC-854 PO (13:12)
[2017-08-18] MEDS ORDERED: DOCU100T13 PO (13:12)
--- NOTE | 2017-08-18 13:15 | Short(Outpt) Discharge Summary ---
Discharge Summary Reason for Hosp/Final Diag: (1) BRBPR (bright red blood per rectum) Status: Chronic Hospital Course & Plan: Anal EUA and hemorrhoidectomy/LIS completed without problems. (2) Hemorrhoids Status: Chronic (3) Anal pain Status: Chronic Departure Discharge to: Home, Self Care Discharge Instructions Home Meds Active Scripts Docusate Sodium (DOCUSATE SODIUM) 100 Mg Tablet, 1 TAB PO BID, #30 TAB 0 Refills Prov:WHITNEY CALIX MD 08/18/17 Oxycodone Hcl/Acet 5/325 Mg (ENDOCET 5-325 TABLET) 1 Each Tablet, 1-2 TAB PO Q4H Y for PAIN, #30 TAB 0 Refills Prov:WHITNEY CALIX MD 08/18/17 Reported Medications Docusate Sodium (COLACE) 100 Mg Capsule, 100 MG PO BID, CAPSULE 08/01/17 Alprazolam 0.25 Mg Tab (XANAX 0.25 MG TAB) 0.25 Mg Tablet, 1 TAB PO TID Y for ANXIETY, TAB 06/13/17 Escitalopram Oxalate (ESCITALOPRAM OXALATE) 10 Mg Tablet, 10 MG PO QDAY, TAB 06/13/17 Bupropion Hcl (WELLBUTRIN XL) 300 Mg Tab.er.24h, 300 MG PO QDAY, TAB 06/06/17 Follow up Referrals: General Surgery - 09/12/17 @ Surgery, General with Whitney Calix Md You have a follow up appointment scheduled with Dr. Calix on Tuesday, , at 2:00pm. Diet: Regular Activity: As Tolerated Special Instructions: You have a piece of foam in your anal canal that you will pass in the next 48 hours and it will look like bloody clots in the toilet. This is normal and expected. You can expect to pass blood from your anus and have pain for the next 10-14 days. You can take hot baths and use the prescribed pain medication and ibuprofen for pain relief. Problem Qualifiers (1) Hemorrhoids: Hemorrhoid type: unspecified Qualified Codes: K64.9 - Unspecified hemorrhoids WHITNEY CALIX MD Aug 18, 2017 13:15
[2017-08-18 13:52] VITALS: BP 94/52
--- NOTE | 2017-08-18 14:17 | Post Operative Progress Note ---
Post Operative Progress Note Date: Aug 18, 2017 Time: 14:00 Surgeon: Laurel Dictation number: [id number] Anesthesia: LMA by Dr. Palomares Pre-Op Diagnosis: BRBPR Post-Op Diagnosis: TIMOTHY Findings: Posterior anal fissure External hemorrhoid Procedure(s): Anal examination under anesthesia LIS Hemorrhoidectomy Specimen Removed:(May be N/A): None Complications: None Fluids: See anesthesia record Estimated Blood Loss: Minimal Date OP Note Dictated: Aug 18, 2017 Time OP Note Dictated: 14:10 WHITNEY CALIX MD Aug 18, 2017 14:17
[2017-08-18 14:21] VITALS: BP 94/54
[2017-08-18 14:24] VITALS: BP 90/51
--- NOTE | 2017-08-18 19:57 | OPERATIVE REPORT 1 ---
EVENT DATE: August 18, 2017 SURGEON: Chester Barragan MD ANESTHESIOLOGIST: Chester Palomares MD ANESTHESIA: LMA. PREOPERATIVE DIAGNOSES 1. Anal pain. 2. Hemorrhoid. 3. Bright red blood per rectum. POSTOPERATIVE DIAGNOSES 1. Anal pain. 2. Hemorrhoid. 3. Bright red blood per rectum. PROCEDURES PERFORMED 1. Anal exam under anesthesia. 2. Lateral internal sphincterotomy. 3. Excisional hemorrhoidectomy times one column. COMPLICATIONS None. CONDITION Stable. BLOOD LOSS Minimal. INDICATIONS This is a patient whom I admitted to the hospital about six to eight weeks ago due to severe pain due to a thrombosed hemorrhoid. She ultimately got better, but had persistent anal pain and had what I thought was a posterior anal fissure and had persistent anal hemorrhoid. She was requesting to have this addressed in the operating room. DESCRIPTION OF PROCEDURE The patient was brought to the operating room and placed supine on the operating table. LMA anesthesia was administered, and she was placed in candy cane stirrups. Her buttocks and perianal area were prepped and draped in a sterile fashion. Timeout was completed. I then performed an anal exam, and this revealed good sphincter tone, a left posterior hemorrhoid, and a posterior midline anal fissure. I palpated the left internal sphincteric groove and made a radial incision over this. I then used a Jonna clamp to develop the plane between the internal and external sphincter muscles and then used electrocautery to divide the internal sphincter. I then anesthetized the skin around the hemorrhoid and around my incision for the internal sphincterotomy with 0.5% ropivacaine plain. I then grasped the hemorrhoid and used initially a scalpel and raised the hemorrhoid up off the sphincter muscles. I used electrocautery to do this in a hemostatic fashion all the way to the root of the hemorrhoid. I then divided the hemorrhoid at its root and ligated the pedicle with a single 3-0 Vicryl suture. I then closed the skin with interrupted 3-0 chromic sutures. The anal canal was packed with rolled up Gelfoam. She was then awakened and LMA removed. An ABD pad was placed around the buttocks, and mesh panties were placed on her. She was transported to the recovery room in stable condition having tolerated the procedure without any apparent problems. LEXX
[2017-08-19] MEDS ORDERED: PATCH REMOVAL 1 EA TP ONE (10:00)
== END 2017-08-18 13:52 | disposition home or self-care (01) ==
LOC: OR 02:54
PROVIDERS: ATTEND Surgery
DX: K62.89 Other specified diseases of anus and rectum (principal); K64.8 Other hemorrhoids; K62.5 Hemorrhage of anus and rectum
CPT/HCPCS: 46255; J1100; J1885; J2001; J2250; J2405; J2704; J2765; J2795; J3010

== ENCOUNTER 2018-02-17 03:16 | Day surgery (SDC) | payer BC ==
[2017-06-14 08:34] VITALS: Ht 162.6 cm; Wt 59.4 kg
[~2018-02-17] VITALS: Ht 162.6 cm; Wt 59.4 kg
[2018-02-17 07:20] VITALS: BP 112/61
[2018-02-17 07:22] LABS: PLATELET COUNT, AUTOMATED 259 K/uL (150-450)
[2018-02-17] MEDS ORDERED: MIDAZOLAM 2 MG/2 ML VIAL IVP PRN (07:30)
[2018-02-17] MEDS ORDERED: LIDOCAINE/SOD BICARB 8.4% SYR ID ONE (07:30)
[2018-02-17] MEDS ORDERED: NORMOSOL R SOLN(*) 1000 ML BAG 1,000 ML IV PRN (07:30)
[2018-02-17] MEDS ORDERED: FAMOTIDINE 20 MG TAB PO ONE (07:30)
[2018-02-17] MEDS ORDERED: DEXAMETHASONE SOD PHOS 10MG/ML ONE (07:56)
[2018-02-17] MEDS ORDERED: LIDOCAINE MPF 1% 5 ML VIAL ONE (07:56)
[2018-02-17] MEDS ORDERED: ONDANSETRON 4 MG/2 ML VIAL ONE (07:56)
[2018-02-17] MEDS ORDERED: PROPOFOL EMUL(*) 10MG/ML 20 ML 20 ML ONE (07:56)
[2018-02-17] MEDS ORDERED: fentaNYL CITR 100 MCG/2 ML AMP ONE ×2 (07:57→12:04)
[2018-02-17] MEDS ORDERED: KETAMINE HCL-NS 50 MG/5 ML SYR ONE (07:57)
[2018-02-17] MEDS ORDERED: ROPIVACAINE 0.2% 20 ML VIAL ONE (09:49)
[2018-02-17] MEDS ORDERED: KETOROLAC 30 MG/ML VIAL ONE (11:34)
[2018-02-17] MEDS ORDERED: SUGAMMADEX SOD 200 MG/2 ML SDV ONE (11:35)
[2018-02-17] MEDS ORDERED: LR(*) 1000 ML BAG 1,000 ML IV ONE (12:07)
[2018-02-17] MEDS ORDERED: PROMETHAZINE 25 MG/ML 1 ML AMP ONE (12:07)
--- NOTE | 2018-02-17 12:07 | Post Operative Note ---
Operative Note - GUEST LAUNDRY ATTENDANT Operative Day Date: Feb 17, 2018 Time: 12:05 Physicians Surgeon: Sagrario Anesthesia: GETA Diagnosis Pre-Op Diagnosis: RLQ abdominal pain Right adnexal cyst Post-Op Diagnosis: same pelvic adhesions Procedure Findings: adhesions ROV cyst Right adnexal cysts Procedure(s): L-scope resection of endometriosis L-scope RSO Specimen Removed:(Maybe N/A): right ovary and tube Complications: #[id number] Fluids Fluids: 1200 ml Estimated Blood Loss: minimal Dictated Date OP Note Dictated: Feb 17, 2018 Time OP Note Dictated: 12:07 Copies to: CHARLIE CALVILLO MD ; CHARLIE CALVILLO MD Feb 17, 2018 12:07
[2018-02-17] MEDS ORDERED: APAP/HYDROCODONE 325/5 TAB PO PRN (12:10)
[2018-02-17] MEDS ORDERED: ESTRADIOL 0.1 MG/24 HR TDSY TD ONE (12:10)
--- NOTE | 2018-02-17 12:11 | Short(Outpt) Discharge Summary ---
Discharge Summary Reason for Hosp/Final Diag: (1) RLQ abdominal pain Hospital Course & Plan: s/p L-scope RSO, adhesiolysis (2) Right ovarian cyst Departure Discharge to: Home, Self Care Discharge Instructions Home Meds Reported Medications Alprazolam 0.25 Mg Tab (XANAX 0.25 MG TAB) 0.25 Mg Tablet, 1 TAB PO TID PRN for ANXIETY, TAB 06/13/17 Bupropion Hcl (WELLBUTRIN XL) 300 Mg Tab.er.24h, 300 MG PO QDAY, TAB 06/06/17 Discontinued Reported Medications Docusate Sodium (COLACE) 100 Mg Capsule, 100 MG PO BID, CAPSULE 08/01/17 Escitalopram Oxalate (ESCITALOPRAM OXALATE) 10 Mg Tablet, 10 MG PO QDAY, TAB 06/13/17 Discontinued Scripts Docusate Sodium (DOCUSATE SODIUM) 100 Mg Tablet, 1 TAB PO BID, #30 TAB 0 Refills Prov:WHITNEY CALIX MD 08/18/17 Oxycodone Hcl/Acet 5/325 Mg (ENDOCET 5-325 TABLET) 1 Each Tablet, 1-2 TAB PO Q4H PRN for PAIN, #30 TAB 0 Refills Prov:WHITNEY CALIX MD 08/18/17 Follow up Referrals: PRODUCTION STATISTICAL CLERK - In Two Weeks @ [facility] with CHARLIE CALVILLO MD Diet: Regular Activity: As Tolerated, With Walker, No Heavy Lifting, No Exertion Copies to: CHARLIE CALVILLO MD ; CHARLIE CALVILLO MD Feb 17, 2018 12:11
[2018-02-17] MEDS ORDERED: LOR5/325 PO (12:14)
[2018-02-17] MEDS ORDERED: ESTR1PAT4 TD (12:14)
[2018-02-17] MEDS ORDERED: SULF-198 PO (12:21)
[2018-02-17] MEDS ORDERED: INFLUENZA VIRUS VAC 0.5ML SYR IM ONLY ONE (12:55)
--- NOTE | 2018-02-17 13:07 | OPERATIVE REPORT 1 ---
EVENT DATE: February 17, 2018 SURGEON: Aditya Zabala MD ANESTHESIOLOGIST: Geovany Balbuena MD ANESTHESIA: General endotracheal. PREOPERATIVE DIAGNOSIS 1. Right lower quadrant abdominal pain. 2. Follicular cyst of the skin and subcutaneous tissue. 3. Unspecified right ovarian cyst. POSTOPERATIVE DIAGNOSIS 1. Right lower quadrant abdominal pain. 2. Follicular cyst of the skin and subcutaneous tissue. 3. Unspecified right ovarian cyst. 4. Pelvic adhesions. PROCEDURE PERFORMED 1. Incision and drainage of subcutaneous skin cyst. 2. Laparoscopic adhesiolysis times 30 minutes. 3. Laparoscopic removal of right ovary and tube. ESTIMATED BLOOD LOSS Minimal. FLUIDS 1200 cc IV Crystalloid. INDICATIONS Maribel is a pleasant 37-year-old 3, para 3 with a history of a prior hysterectomy and subsequent removal of left tube and ovary. She has been having ongoing pain in the abdomen over the last 3 years and gradually getting worse, radiating down her right thigh. She described it as a cramping pain and also pain with intercourse. On ultrasound in the office there was a 3.2 cm complex appearing cyst within the right ovary suspected to be an endometrioma. We discussed the possibility of removal of the right tube and ovary in order to resolve her pain if necessary and if there was evidence of endometriosis. Also, she has been having a lump on the right groin area where the leg meets the body in the crease there. There was a linear 1 x 3 cm fluctuant and scarred apparent intradermal cyst, tender to palpation. FINDINGS Upon making an incision within this skin cyst, clear yellow fluid was extruded. There did not appear to be pus present within the wound. The interior of the cyst was consistent with subcutaneous tissue and did not appear to be infected. Inspecting the abdomen, there was an adhesion of the descending colon to the left pelvic side wall and with surgical clips located in that location. The right tube and ovary were densely adhered to the right pelvic side wall. The ureter was observed peristalsing beneath the right ovary and was observed and protected throughout the procedure. Normal appearing appendix. Normal appearing right upper quadrant. PROCEDURE IN DETAIL The patient was brought to the operating room with a working IV, placed in the dorsal supine position. She was placed under general endotracheal anesthesia and then moved to the dorsal lithotomy position. She was prepped and draped in the usual sterile fashion. Attention was first turned to the right groin cyst. It was infiltrated with local anesthetic and a linear incision times 2 cm was made along the length of the surface of the cyst. A yellow fluid was extruded. It did not appear to be purulent. The interior of the cyst was consistent with subcutaneous tissue. There did not appear to be a cyst wall. It was thoroughly irrigated and debrided and a light amount of cautery was used for hemostasis. The interior was closed with a 4-0 Chromic simple running stitch and the skin incisions were reapproximated simple subdermal with the same stitch. This was covered with a band-aid upon completion. A sponge stick was placed in the vagina. The bladder had been previously drained. The legs were brought back to the supine position and gloves were changed. We proceeded with laparoscopy by infiltrating the umbilicus with 0.2% Naropin. A 5 mm stab incision was made and the anterior abdominal wall was stabilized. The scope and 5 mm trocar was used with insufflation running as a directed guided Veress entry into the abdomen through the facia, through the peritoneum, and immediate insufflation of the abdomen was visualized. The trocar was removed and insufflation was continued to an intraabdominal pressure of 15 mmHg. Two additional 5 mm ports were placed in the left lower quadrant and suprapubic locations under direct visualization and under similar technique. Through these ports instruments were passed to perform the surgery. The procedure proceeded as follows: The harmonic scalpel was used to take down the adhesion of the left pelvic side wall to the descending colon until it was significantly freed up. Attempts were made to remove the visible clips that were freely accessible. Attention was then turned to the right side in which the ovary and tube were densely adhered to the posterior ovarian fossa and right pelvic side wall. There were surgical clips in this location as well. The proximal portion of the fallopian tube was adhered to the side wall and it was grasped in this location. Extreme care was taken to identify the ureter peristalsing well beneath the operative area. Therefore, the tube was taken off of the pelvic side wall by dissecting retroperitoneal and dissecting down and around the ovary taking special care to avoid the ureter and make sure it was well beneath the operative area. The harmonic scalpel was used to do this dissection. Once that had been adequately freed up, the ovarian cyst that was seen prior to the case came into view and ruptured with a dark fluid extruding from it. This could represent a hemorrhagic cyst or an endometrioma. It was not clearly evident. There were other cystic structures within this adhesive complex of the right ovary consistent with peritoneal cysts and adhesion type cysts from prior surgery. The ovary overall did not look healthy and therefore it was deemed to remove the entire thing. The IP ligament was then isolated and taken down with the harmonic scalpel using advanced hemostasis. It was dissected through and followed along the pelvic side wall to the aforementioned dissection until the ovary was freely released from the pelvic side wall. The ureter was still observed peristalsing well beneath the operative area. The right pelvic side wall was irritated and suctioned dry. No visible bleeding. The 5 mm suprapubic port was removed and the incision was extended to accommodate a 10 mm port. An Endopouch was used to scoop up the specimen and it was taken up to the 10 mm port. A Lilliana was then used to stretch the fascia in order to accommodate removal of the ovary through this 10 mm port. Stephen-Harshad closure device was used then to close the suprapubic port after copious irrigation and suction was completed. No visible bleeding, no complications, therefore the pneumoperitoneum was suctioned out. All instruments were removed. The skin incisions were repaired with a Monocryl 4-0 simple subdermal and covered with Dermabond skin adhesive. She tolerated the procedure well. Sponge, lap, needle, and instrument counts were all correct times 3. MTDD
[2018-02-17 13:30] VITALS: BP 106/88
[2018-02-17 13:45] VITALS: BP 111/44
[2018-02-17 14:00] VITALS: BP 101/68
[2018-02-17 14:13] VITALS: BP 101/67
[2018-02-17 14:15] VITALS: BP 102/59
== END 2018-02-17 12:27 | disposition home or self-care (01) ==
LOC: OR 03:16
PROVIDERS: ATTEND Obstetrics & Gynecology
DX: R10.31 Right lower quadrant pain (principal); N83.201 Unspecified ovarian cyst, right side; Z23 Encounter for immunization
CPT/HCPCS: 10060; 36415; 58661; 85025; 87071; 87073; 87077; 87186; 88305; 90674; J1100; J1885; J2001; J2250; J2405; J2550; J2704; J2795; J3010; J3490

== ENCOUNTER → 2018-09-18 | Outpatient (CLI) | payer BC, OTHER ==
[2017-06-14 08:34] VITALS: BMI 20.6
[~2018-09-18] MED LIST changes: +ESTR1PAT4 TD; +GADOBENATE 529MG/1ML 15ML VIAL IVP ONE; +LOR5/325 PO; +SULF-198 PO; +diphenhydrAMINE 50 MG/ML VIAL IVP ONE; +diphenhydrAMINE 50 MG/ML VIAL ONE
--- NOTE | 2018-09-18 16:46 | RADIOLOGY IMAGING REPORT ---
FACILITY: [facility] [place] PATIENT NAME: Maribel Johnston : 1980 MR: [id number] V: [id number] EXAM DATE: ORDERING PHYSICIAN: ZHEN BURNS TECHNOLOGIST: Location: [facility] Patient: Maribel Johnston : 1980 Visit/Account:[id number] Date of Sevice: 09/18/2018 EXAMINATION: MRI Brain without intravenous contrast MRI Brain with intravenous contrast MRI Cervical spine without intravenous contrast MRI Cervical spine with intravenous contrast MRI Thoracic spine without intravenous contrast MRI Thoracic spine with intravenous contrast HISTORY: Numbness and tingling in the extremities. COMPARISON: None available. TECHNIQUE: Multi-planar, multi-sequence brain, cervical spine, and thoracic spine MRI was performed before and after IV gadolinium. CONTRAST: 12 mL of IV MultiHance FINDINGS: BRAIN: Brain volume: Normal. Sagittal midline structures: Negative. Ventricles: Negative. Acute ischemic changes: None. Hemorrhage: None. Masses / edema: None. Enhancement: Negative. Licona-white: Negative. White matter: Negative. Vessels: Negative. Extra-axial: None. Calvarium / scalp: Negative. Skull base: Negative. Visualized sinuses / orbits: Rightward nasal septal deviation. Visualized upper neck: Negative. CERVICAL SPINE: Alignment: Straightening of the normal lordosis with minimal retrolisthesis of C5 over C6. Vertebral marrow signal: Negative. Cranio-cervical junction: Negative. Visualized posterior fossa: Negative. Soft tissues: Negative. Cervical cord: Negative. Enhancement pattern: Negative. Disc Spaces: C1-2: Negative. C2-3: Negative. C3-4: Negative. C4-5: Negative. C5-6: Small broad-based disc osteophyte complex, eccentric to the left. No significant stenosis. C6-7: Mild disc bulge. No significant stenosis. C7-T1: Negative. THORACIC SPINE: Alignment: Negative. Vertebral marrow signal: Negative. Paravertebral soft tissues: Negative. Thoracic cord: Negative. Enhancement: Negative. Disc Spaces: Small anterior disc osteophytes at a few levels. Otherwise negative. IMPRESSION: 1. No evidence of demyelinating disease. 2. Minimal degenerative changes in the cervical and thoracic spine. Report Dictated By: Rory Woo MD at 09/18/2018 4:19 PM Report E-Signed By: Rory Woo MD at 09/18/2018 4:40 PM [id number]
--- NOTE | 2018-09-18 16:46 | RADIOLOGY IMAGING REPORT ---
FACILITY: [facility] [place] PATIENT NAME: Maribel Johnston : 1980 MR: [id number] V: [id number] EXAM DATE: ORDERING PHYSICIAN: ZHEN BURNS TECHNOLOGIST: Location: [facility] Patient: Maribel Johnston : 1980 Visit/Account:[id number] Date of Sevice: 09/18/2018 EXAMINATION: MRI Brain without intravenous contrast MRI Brain with intravenous contrast MRI Cervical spine without intravenous contrast MRI Cervical spine with intravenous contrast MRI Thoracic spine without intravenous contrast MRI Thoracic spine with intravenous contrast HISTORY: Numbness and tingling in the extremities. COMPARISON: None available. TECHNIQUE: Multi-planar, multi-sequence brain, cervical spine, and thoracic spine MRI was performed before and after IV gadolinium. CONTRAST: 12 mL of IV MultiHance FINDINGS: BRAIN: Brain volume: Normal. Sagittal midline structures: Negative. Ventricles: Negative. Acute ischemic changes: None. Hemorrhage: None. Masses / edema: None. Enhancement: Negative. Licona-white: Negative. White matter: Negative. Vessels: Negative. Extra-axial: None. Calvarium / scalp: Negative. Skull base: Negative. Visualized sinuses / orbits: Rightward nasal septal deviation. Visualized upper neck: Negative. CERVICAL SPINE: Alignment: Straightening of the normal lordosis with minimal retrolisthesis of C5 over C6. Vertebral marrow signal: Negative. Cranio-cervical junction: Negative. Visualized posterior fossa: Negative. Soft tissues: Negative. Cervical cord: Negative. Enhancement pattern: Negative. Disc Spaces: C1-2: Negative. C2-3: Negative. C3-4: Negative. C4-5: Negative. C5-6: Small broad-based disc osteophyte complex, eccentric to the left. No significant stenosis. C6-7: Mild disc bulge. No significant stenosis. C7-T1: Negative. THORACIC SPINE: Alignment: Negative. Vertebral marrow signal: Negative. Paravertebral soft tissues: Negative. Thoracic cord: Negative. Enhancement: Negative. Disc Spaces: Small anterior disc osteophytes at a few levels. Otherwise negative. IMPRESSION: 1. No evidence of demyelinating disease. 2. Minimal degenerative changes in the cervical and thoracic spine. Report Dictated By: Rory Woo MD at 09/18/2018 4:19 PM Report E-Signed By: Rory Woo MD at 09/18/2018 4:40 PM WSN:[id number]
--- NOTE | 2018-09-18 16:47 | RADIOLOGY IMAGING REPORT ---
FACILITY: [facility] PATIENT NAME: Maribel Johnston : 1980 MR: [id number] V: [id number] EXAM DATE: ORDERING PHYSICIAN: ZHEN BURNS TECHNOLOGIST: [place] [facility] [place] Patient: Maribel Johnston : 1980 Visit/Account:[id number] Date of Sevice: 09/18/2018 EXAMINATION: MRI Brain without intravenous contrast MRI Brain with intravenous contrast MRI Cervical spine without intravenous contrast MRI Cervical spine with intravenous contrast MRI Thoracic spine without intravenous contrast MRI Thoracic spine with intravenous contrast HISTORY: Numbness and tingling in the extremities. COMPARISON: None available. TECHNIQUE: Multi-planar, multi-sequence brain, cervical spine, and thoracic spine MRI was performed before and after IV gadolinium. CONTRAST: 12 mL of IV MultiHance FINDINGS: BRAIN: Brain volume: Normal. Sagittal midline structures: Negative. Ventricles: Negative. Acute ischemic changes: None. Hemorrhage: None. Masses / edema: None. Enhancement: Negative. Licona-white: Negative. White matter: Negative. Vessels: Negative. Extra-axial: None. Calvarium / scalp: Negative. Skull base: Negative. Visualized sinuses / orbits: Rightward nasal septal deviation. Visualized upper neck: Negative. CERVICAL SPINE: Alignment: Straightening of the normal lordosis with minimal retrolisthesis of C5 over C6. Vertebral marrow signal: Negative. Cranio-cervical junction: Negative. Visualized posterior fossa: Negative. Soft tissues: Negative. Cervical cord: Negative. Enhancement pattern: Negative. Disc Spaces: C1-2: Negative. C2-3: Negative. C3-4: Negative. C4-5: Negative. C5-6: Small broad-based disc osteophyte complex, eccentric to the left. No significant stenosis. C6-7: Mild disc bulge. No significant stenosis. C7-T1: Negative. THORACIC SPINE: Alignment: Negative. Vertebral marrow signal: Negative. Paravertebral soft tissues: Negative. Thoracic cord: Negative. Enhancement: Negative. Disc Spaces: Small anterior disc osteophytes at a few levels. Otherwise negative. IMPRESSION: 1. No evidence of demyelinating disease. 2. Minimal degenerative changes in the cervical and thoracic spine. Report Dictated By: Rory Woo MD at 09/18/2018 4:19 PM Report E-Signed By: Rory Woo MD at 09/18/2018 4:40 PM WSN:[id number]
== END ==
LOC: MRI 02:01
PROVIDERS: ATTEND Physician Assistant
DX: R20.0 Anesthesia of skin (principal); R20.2 Paresthesia of skin; R29.898 Other symptoms and signs involving the musculoskeletal system; R32 Unspecified urinary incontinence; R15.9 Full incontinence of feces; R41.89 Other symptoms and signs involving cognitive functions and awareness; R29.2 Abnormal reflex; R29.6 Repeated falls; R27.0 Ataxia, unspecified; Z79.899 Other long term (current) drug therapy
CPT/HCPCS: 70553; 72156; 72157; A9577; J1200

== ENCOUNTER → 2018-12-19 | Outpatient (CLI) | payer OTHER ==
[2017-06-14 08:34] VITALS: BMI 20.6
[~2018-12-19] MED LIST changes: -GADOBENATE 529MG/1ML 15ML VIAL IVP ONE; -diphenhydrAMINE 50 MG/ML VIAL IVP ONE; -diphenhydrAMINE 50 MG/ML VIAL ONE
--- NOTE | 2018-12-19 14:33 | RADIOLOGY IMAGING REPORT ---
[place] [facility] [place]IENT NAME: Maribel Johnston : 1980 MR: [id number] V: [id number] EXAM DATE: ORDERING PHYSICIAN: ZHEN BURNS TECHNOLOGIST: Location: [facility] [place] Patient: Maribel Johnston : 1980 Visit/Account:[id number] Date of Sevice: 12/19/2018 EXAMINATION: MR SPINE LUMBAR W/O CON INDICATION: Weakness, numbness and tingling, ataxia, spasticity COMPARISON: None available TECHNIQUE: Multiplane MR imaging was performed through the lumbar spine without contrast. FINDINGS: Vertebral bodies and posterior elements: Normal vertebral body heights. Chronic bilateral L5 pars def ects. Conus position/signal: Normal Marrow signal: 1.7 cm faint sclerosis within the L5 vertebral body, sagittal T1 image 7 is not visibl e on the STIR acquisition. Extraspinal structures including psoas muscles/paraspinal soft tissues: Normal. L1-2: Minimal disc bulge, no canal narrowing, normal foramen. L2-3: Minimal disc bulge, no canal narrowing, normal foramen. L3-4: Minimal disc bulge, no canal narrowing, normal foramen. L4-5: Small disc bulge, no canal narrowing, minimal to mild right and minimal left foraminal narrowin g. L5-S1: Small disc bulge, no canal narrowing. Mild to moderate proximal left foraminal narrowing. Mini mal to mild proximal right foraminal narrowing. IMPRESSION: 1. Chronic bilateral L5 pars defects. 2. L4-5 and L5-S1 foraminal narrowing, see comments above. 3. Minimal to small multilevel disc bulges result in no canal narrowing. 4. 1.7 cm faint sclerosis within the L5 vertebral body is favored to be benign. Malignant sclerosis i s felt less likely given age. Follow-up MR in 3-4 months could be utilized to document stability as n eeded. Report Dictated By: Jayant Singh MD at 12/19/2018 2:18 PM Report E-Signed By: Jayant Singh MD at 12/19/2018 2:25 PM WSN:[id number]
== END ==
LOC: MRI 08:41
PROVIDERS: ATTEND Physician Assistant
DX: M48.07 Spinal stenosis, lumbosacral region (principal); M48.061 Spinal stenosis, lumbar region without neurogenic claudication
CPT/HCPCS: 72148